=== PATIENT | female | born 1950 | race Caucasian/White ===

== ENCOUNTER 2017-09-12 10:28 | Outpatient (CLI) | payer OTHER ==
[2017-09-12 11:42] LABS: eGFR (African) > 60; eGFR (Non-African) > 60
--- NOTE | 2017-09-12 15:37 | Diagnostic Imaging Report ---
[place] ESQUIVEL [facility] [address] [facility] [address] [id number] Report Submission Date: Sep 12, 2017 11:37:40 AM BEESWAX BLEACHER Patient Study Name: BHUPINDER MUSTAFA Date: Sep 12, 2017 10:56:52 AM BEESWAX BLEACHER Modality Type: CR Gender: F Description: SPINE : 54 Institution: [facility] Physician: CA ESQUIVEL Examination: Plain film lumbar spine History: Back discomfort. Findings: 3 views of the lumbar spine demonstrate normal height. Mild listhesis of L4 on L5: less than 5%. Few anterior osteophytes. Facet degenerative changes. No anterior compression. Atherosclerotic disease involving the abdominal aorta. Impression: Degenerative changes. No compression deformity. If patient is experiencing neurologic symptoms, consider obtaining MRI. Electronically signed on Sep 12, 2017 11:37:40 AM BEESWAX BLEACHER by: Lui OROSCO
== END 2017-09-12 12:59 ==
LOC: LAB 10:28
PROVIDERS: ATTEND Family Medicine
DX: Z00.00 Encounter for general adult medical examination without abnormal findings (principal); M54.5 Low back pain; Z13.6 Encounter for screening for cardiovascular disorders
CPT/HCPCS: 36415; 72100; 80053; 80061

== ENCOUNTER 2017-09-14 08:44 | Outpatient (CLI) | payer OTHER ==
--- NOTE | 2017-09-14 10:05 | Diagnostic Imaging Report ---
[place] ESQUIVEL [facility] [address] [facility].[address] [address] Report Submission Date: Sep 14, 2017 9:25:54 AM IOS SOFTWARE ENGINEER Patient Study Name: BHUPINDER MUSTAFA Date: Sep 14, 2017 9:06:30 AM IOS SOFTWARE ENGINEER Modality Type: US Gender: F Description: AAA SCREEN MEDICARE : 54 Institution: [facility] Physician: CA ESQUIVEL Examination: Ultrasound aorta History: Evaluate for aneurysm Comparison exams: None available Findings: Proximal aorta measures 2.3 cm maximally. Mid aorta measures 1.5 cm maximally. Distal aorta measures 1.5 cm maximally. Iliac vessels measure 1.0 cm. No peripheral calcification or thrombus. Impression: No evidence for abdominal aortic aneurysm Electronically signed on Sep 14, 2017 9:25:54 AM IOS SOFTWARE ENGINEER by: Lui OROSCO
== END 2017-09-14 10:04 ==
LOC: RAD 08:44
PROVIDERS: ATTEND Family Medicine
DX: Z78.0 Asymptomatic menopausal state (principal); Z82.49 Family history of ischemic heart disease and other diseases of the circulatory system
CPT/HCPCS: 77080

== ENCOUNTER 2019-02-20 17:04 | Outpatient (CLI) | payer OTHER | END 2019-02-20 17:06 | LOC: LABRHC 17:04 | PROVIDERS: ATTEND Family Medicine | DX: R30.0 Dysuria (principal) | CPT/HCPCS: 87086 ==

== ENCOUNTER 2019-06-17 14:38 | Outpatient (CLI) | payer OTHER ==
[2019-06-17 15:46] LABS: HDL 29 mg/dL (>40); eGFR (Non-African) > 60
== END 2019-06-17 14:40 ==
LOC: LAB 14:38
PROVIDERS: ATTEND Family Medicine
DX: R53.83 Other fatigue (principal)
CPT/HCPCS: 36415; 80053; 80061; 84443

== ENCOUNTER 2019-10-15 13:52 | Outpatient (CLI) | payer OTHER | END 2019-10-15 13:57 | LOC: LABRHC 13:52 | PROVIDERS: ATTEND Family Medicine | DX: E11.9 Type 2 diabetes mellitus without complications (principal) | CPT/HCPCS: 83036 ==